=== PATIENT | female | born 1950 | race Caucasian/White ===

== ENCOUNTER 2016-11-08 05:48 | Inpatient (IN) ==
--- NOTE | 2016-11-01 11:12 | XRay Report ---
XR chest 2V Indication: Preop respiratory evaluation Comparison: Chest x-ray dated February 03, 2014 Technique: Frontal and lateral views of the chest Findings: Cardiomediastinal silhouette is stable in configuration. Chronic change of the lungs without focal consolidation, pleural effusion, or pneumothorax.Surgical anchors noted within the proximal right humerus. IMPRESSION: No acute cardiopulmonary process demonstrated. PROCEDURE INTERPRETED AT [facility] DEPARTMENT OF RADIOLOGY Final Report Signed by: Dr Mack Harris
--- NOTE | 2016-11-01 11:15 | EKG Report ---
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
[2016-11-01 11:37] LABS: Basophils # 0.1 10*3/uL (0.0-0.2); Basophils % 1.3 % (0.0-0.8); Eosinophils # 0.3 10*3/uL (0.0-0.87); Eosinophils % 3.6 % (0.00-10.9); Hematocrit 32.1 VOL% (35.7-47.0); Hemoglobin 10.2 GM/DL (12.0-16.0); Immature Granulocytes % 0.4 %; Immature Granulocytes Absolute 0.03 #; Lymphocytes # 1.9 10*3/uL (1.4-4.0); Lymphocytes % 26.7 % (21.3-54.2); Mean Corpuscular HGB Conc 31.8 GM/DL (32-36); Mean Corpuscular Hemoglobin 27 PG (27-34); Mean Corpuscular Volume 83.4 FL (87-102); Mean Platelet Volume 9.9 FL (9.6-12.0); Monocytes # 0.5 10*3/uL (0.11-0.8); Monocytes % 7.8 % (1.7-12.7); Neutrophils # 4.2 10*3/uL (1.4-7.4); Neutrophils % 60.2 % (38.7-73.9); Platelet Count 369 T/CUMM (130-400); Red Blood Count 3.85 MC/CUMM (3.8-5.5); Red Cell Distribution Width 17.3 % (9.3-17.3); White Blood Count 6.9 T/CUMM (4-12)
[2016-11-01 11:40] LABS: Apearance,Urine CLEAR (Clear); Bilirubin,Urine Negative (Negative); Blood, Urine Negative (Negative); Glucose,Urine (UA) Negative (Negative); Ketones,Urine Negative (Negative); Nitrite,Urine Negative (Negative); Protein,Urine Negative; RBC,Urine 1 /HPF (0-4); Squamous Epithelial Cell,Urine Occasional /HPF (0-10); Urine Color Yellow (Yellow); Urine Specific Gravity 1.011 (1.001-1.035); Urine Urobilinogen < 2.0 EU/DL (0.2-1.0); WBC,Urine <1 /HPF (0-6)
[2016-11-01 11:50] LABS: PT Patient Result 10.4 SECS
[2016-11-01 12:16] LABS: Alanine Aminotransferase 12 U/L (13-56); Albumin 3.9 G/DL (3.4-5.0); Alkaline Phosphatase 76 U/L (45-117); Aspartate Amino Transferase 11 U/L (0-37); Bilirubin,Total < 0.39 MG/DL (0.2-1.0); Blood Urea Nitrogen 22 MG/DL (7-18); Calcium 8.8 MG/DL (8.5-10.1); Glucose 106 MG/DL (74-106); Osmolality,Calculated 272.1 MOS/KG (273-304); Potassium 4.3 MMOL/L (3.5-5.1); Sodium 135 MMOL/L (136-145); Total Protein 7.4 G/DL (6.4-8.3)
[2016-11-08] MEDS ORDERED: VANCOMYCIN INJ 1,000 MG in SODIUM CHLORIDE 0.9% 250 ML IV ONE (06:00)
[2016-11-08] MEDS ORDERED: VANCOMYCIN 1,000 MG VIAL ONE (06:11)
[2016-11-08] MEDS ORDERED: CLINDAMYCIN INJ 50 ML IV ONE (06:11)
[2016-11-08] MEDS ORDERED: LACTATED RINGERS 1,000 ML IV SCH (06:30)
[2016-11-08] MEDS ORDERED: LORazepam 1 MG TABLET PO ONE (06:33)
[2016-11-08] MEDS ORDERED: FAMOTIDINE 20 MG TABLET PO ONE (06:33)
[2016-11-08] MEDS ORDERED: BUPIVACAINE 0.5% 50 ML VIAL ONE (06:34)
[2016-11-08] MEDS ORDERED: MORPHINE 10 MG/1 ML VIAL ONE (06:34)
[2016-11-08] MEDS ORDERED: EPINEPHrine 1 MG/ML VIAL ONE (06:34)
[2016-11-08] MEDS ORDERED: PROPOFOL 500 MG/50 ML BOTTLE IV ONE (07:00)
[2016-11-08] MEDS ORDERED: ONDANSETRON 4 MG/2 ML VIAL ONE (07:00)
[2016-11-08] MEDS ORDERED: LIDOCAINE 1% 5 ML VIAL ONE (07:00)
[2016-11-08] MEDS ORDERED: ROPIVACAINE 0.5% 30 ML VIAL ONE (07:51)
[2016-11-08] MEDS ORDERED: CLINDAMYCIN INJ 900 MG in PREMIX 1 EACH IV ONE (07:54)
[2016-11-08] MEDS ORDERED: diphenhydrAMINE CAP 25 MG CAPSULE PO PRN (08:24)
[2016-11-08] MEDS ORDERED: MAGNESIUM HYDROXIDE SUSP 30 ML UDCUP PO PRN (08:24)
[2016-11-08] MEDS ORDERED: GLUCAGON 1 MG VIAL IM PRN (08:24)
[2016-11-08] MEDS ORDERED: ZALEPLON 5 MG CAPSULE PO PRN (08:24)
[2016-11-08] MEDS ORDERED: DEXTROSE 50% 25 GM/50 ML VIAL IV PRN (08:24)
--- NOTE | 2016-11-08 08:37 | Anesthesia Post-Op ---
Anesthesia Post OP - Post Ansesthetic Evaluation Patient seen in post op: Yes Resp: within normal limits CV: within normal limits Mental: within normal limits Temp: within normal limits [id number]-Tj-Oxcbxekmp: within normal limits Nausea and Vomiting: within normal limits Pain: within normal limits
[2016-11-08] MEDS ORDERED: MIDAZOLAM 2 MG/2 ML VIAL ONE (08:38)
[2016-11-08] MEDS ORDERED: ACETAMINOPHEN 1,000 MG/100 ML VIAL IV ONE (08:39)
[2016-11-08] MEDS ORDERED: SODIUM CHLORIDE 0.9% 100 ML IV ONE (08:39)
[2016-11-08] MEDS ORDERED: fentaNYL 100 MCG/2 ML VIAL ONE (08:39)
[2016-11-08] MEDS ORDERED: NON-FORMULARY MEDICATION (Biotin [Biotin] 5,000 MCG) PO SCH (09:00)
--- NOTE | 2016-11-08 09:08 | XRay Report ---
Exam: XR knee 2V LT Date: 11/08/2016 8:26 AM Comparison: 11/08/2016 Indication: Postop knee replacement Technique:[AP and lateral left knee] Findings: Recent satisfactory left total knee replacement with postoperative findings. Impression: Recent satisfactory left total knee replacement. No fracture or dislocation. PROCEDURE INTERPRETED AT [facility] DEPARTMENT OF RADIOLOGY Final Report Signed by: Dr. Nay Nash
[2016-11-08] MEDS ORDERED: TRANEXAMIC ACID 1,000 MG/10 ML VIAL IV ONE (09:15)
[2016-11-08] MEDS: ALBUTEROL/IPRATROPIUM 3 ML NEB RESP TX SCH ×4 (09:30→19:57)
[2016-11-08] MEDS: SODIUM CHLORIDE 0.9% 1,000 ML IV SCH ×3 (09:50→20:14)
[2016-11-08] MEDS: INSULIN LISPRO 100 UNIT/ML SUBCUT SCH ×3 (11:24→20:46)
[2016-11-08 11:36] LABS: Basophils # 0.1 10*3/uL (0.0-0.2); Basophils % 0.8 % (0.0-0.8); Eosinophils # 0.2 10*3/uL (0.0-0.87); Eosinophils % 2.2 % (0.00-10.9); Hematocrit 28.4 VOL% (35.7-47.0); Hemoglobin 8.8 GM/DL (12.0-16.0); Immature Granulocytes % 0.8 %; Immature Granulocytes Absolute 0.07 #; Lymphocytes # 1.6 10*3/uL (1.4-4.0); Lymphocytes % 18.3 % (21.3-54.2); Mean Corpuscular Hemoglobin 26 PG (27-34); Mean Corpuscular Volume 84.8 FL (87-102); Mean Platelet Volume 9.4 FL (9.6-12.0); Monocytes # 0.5 10*3/uL (0.11-0.8); Monocytes % 6.1 % (1.7-12.7); Neutrophils # 6.3 10*3/uL (1.4-7.4); Neutrophils % 71.8 % (38.7-73.9); Platelet Count 340 T/CUMM (130-400); Red Blood Count 3.35 MC/CUMM (3.8-5.5); Red Cell Distribution Width 17.2 % (9.3-17.3); White Blood Count 8.8 T/CUMM (4-12)
--- NOTE | 2016-11-08 12:05 | Pulmonology Progress Note ---
Pulmonary - PN: Subj Interval history: Lane Ramirez, ANP-BC, GNP-BC, acting as scribe for Dr. Jose J Durand Ms. Thibodeaux is a 66 year old white female who underwent left total knee arthroplasty earlier today by Dr. Dee. We are consulted to follow along in medical management consultation. Her pertinent past history includes: COPD, colon polyps, depression, esophagitis. GERD, and hiatal hernia. On review of [facility] records, there may be a past history of tobacco use, but the patient's records here say she was never a smoker. She was seen today along with her . She is post-op and doing well. She denies any pain, complaints or concerns at this time. Medications have been reviewed. Her home medications have been restarted. Labs have been reviewed. Her pre-op labs were done 11/01/16, so we will check a CBC and BMP/Mg+ today. Exam (Progress Note) - Constitutional Vitals: Period Temp Pulse Resp BP Sys/Valdovinos Pulse Ox Last 24 Hr 97.2 F-98.1 F 65-68 16-20 107-143/59-88 94-100 Exam: Chest is clear Heart no gallop Abd is nontender and nondistended; BS postivie x 4 Ext post-surgical as per Dr. Dee; nothing to suggest acute DVT Psych somnolent, but arousable and able to answer questions appropriately Neuro long tract motor function is intact Plan: Check CBC and BMP/Mg+ today. Labs already ordered for tomorrow. Continue present treatment. See orders. Results - Labs CBC & BMP: 11/08/16 11:25 11/08/16 11:25
[2016-11-08 12:07] LABS: Alanine Aminotransferase 12 U/L (13-56); Alkaline Phosphatase 71 U/L (45-117); Aspartate Amino Transferase 12 U/L (0-37); Bilirubin,Total < 0.39 MG/DL (0.2-1.0); Blood Urea Nitrogen 20 MG/DL (7-18); Calcium 8.4 MG/DL (8.5-10.1); Glucose 105 MG/DL (74-106); Osmolality,Calculated 279.5 MOS/KG (273-304); Potassium 4.1 MMOL/L (3.5-5.1); Sodium 139 MMOL/L (136-145); Total Protein 5.8 G/DL (6.4-8.3)
[2016-11-08] MEDS: KETOROLAC 30 MG/1 ML VIAL IV SCH ×3 (12:16→20:03)
[2016-11-08] MEDS: FLUTICASONE/SALMETEROL 250-50 DISKUS 14 DOSE INH SCH ×2 (12:16→21:48)
[2016-11-08] MEDS: CITALOPRAM 20 MG TABLET PO SCH (12:16)
[2016-11-08] MEDS: DOCUSATE SODIUM 100 MG CAPSULE PO SCH ×2 (12:16→20:02)
[2016-11-08] MEDS: hydroCHLOROthiazide 25 MG TABLET PO SCH (12:17)
[2016-11-08] MEDS: POTASSIUM CHLORIDE 20 MEQ PACK PO SCH (12:17)
[2016-11-08] MEDS: PANTOPRAZOLE 40 MG TABLET PO SCH ×2 (12:17→21:12)
[2016-11-08] MEDS: LEVOTHYROXINE 50 MCG TABLET PO SCH (12:17)
[2016-11-08] MEDS: ACETAMINOPHEN 500 MG TABLET PO SCH ×2 (13:13→20:02)
[2016-11-08] MEDS: ONDANSETRON 4 MG/2 ML VIAL IV PRN (13:13)
[2016-11-08] MEDS: CLINDAMYCIN INJ 900 MG in PREMIX 1 EACH IV SCH ×2 (13:13→20:13)
--- NOTE | 2016-11-08 17:26 | Orthopedic Progress Note ---
Assessment and Plan (1) Status post total left knee replacement Status: Acute Assessment and plan: Routine postop antibiotics DVT prophylaxis Out of bed with therapy twice daily beginning tomorrow Discharge planning Current Visit: Yes Orthopedics - Subjective Interval history: Patient's pain is controlled, she has no complaints postoperatively. On exam her dressings clean dry, she is neurovascular intact the left foot. Exam - Constitutional Vitals: Period Temp Pulse Resp BP Sys/Valdovinos Pulse Ox Last 24 Hr 97.2 F-98.1 F 56-68 16-20 91-143/53-88 92-100 Results - Labs CBC & BMP: 11/08/16 11:25 11/08/16 11:25
[2016-11-09] MEDS: ACETAMINOPHEN 500 MG TABLET PO SCH ×2 (00:59→06:59)
[2016-11-09] MEDS: SODIUM CHLORIDE 0.9% 1,000 ML IV SCH (04:20)
[2016-11-09] MEDS: ENOXAPARIN 40 MG/0.4 ML SYRINGE SUBCUT SCH (04:57)
[2016-11-09] MEDS ORDERED: KETOROLAC 30 MG/1 ML VIAL IV ONE (05:00)
[2016-11-09] MEDS: KETOROLAC 30 MG/1 ML VIAL IV SCH (05:05)
[2016-11-09 05:14] LABS: Basophils % 0.5 % (0.0-0.8); Eosinophils # 0.2 10*3/uL (0.0-0.87); Eosinophils % 2.8 % (0.00-10.9); Hematocrit 26.1 VOL% (35.7-47.0); Hemoglobin 7.9 GM/DL (12.0-16.0); Immature Granulocytes % 0.7 %; Immature Granulocytes Absolute 0.05 #; Lymphocytes # 1.8 10*3/uL (1.4-4.0); Lymphocytes % 23.9 % (21.3-54.2); Mean Corpuscular HGB Conc 30.3 GM/DL (32-36); Mean Corpuscular Hemoglobin 26 PG (27-34); Mean Corpuscular Volume 85.6 FL (87-102); Mean Platelet Volume 10.2 FL (9.6-12.0); Monocytes # 0.8 10*3/uL (0.11-0.8); Monocytes % 11.2 % (1.7-12.7); Neutrophils # 4.5 10*3/uL (1.4-7.4); Neutrophils % 60.9 % (38.7-73.9); Platelet Count 302 T/CUMM (130-400); Red Blood Count 3.05 MC/CUMM (3.8-5.5); Red Cell Distribution Width 17.3 % (9.3-17.3); White Blood Count 7.4 T/CUMM (4-12)
[2016-11-09 05:38] LABS: Calcium 7.6 MG/DL (8.5-10.1); Osmolality,Calculated 283.4 MOS/KG (273-304); Potassium 4.7 MMOL/L (3.5-5.1)
[2016-11-09] MEDS: ALBUTEROL/IPRATROPIUM 3 ML NEB RESP TX SCH ×4 (07:15→19:05)
--- NOTE | 2016-11-09 07:44 | Orthopedic Progress Note ---
Assessment and Plan (1) Status post total left knee replacement Status: Acute Assessment and plan: DVT prophylaxis Out of bed with therapy twice daily Discharge planning Current Visit: Yes Orthopedics - Subjective Interval history: Patient has no complaints this morning, her pain is controlled. On exam her dressings clean and dry, she is neurovascularly intact in the left foot. Exam - Constitutional Vitals: Period Temp Pulse Resp BP Sys/Valdovinos Pulse Ox Last 24 Hr 97.2 F-98.5 F 56-87 16-20 91-125/48-88 92-100 Results - Labs CBC & BMP: 11/09/16 04:41 11/09/16 04:41
[2016-11-09] MEDS: INSULIN LISPRO 100 UNIT/ML SUBCUT SCH ×4 (07:58→21:31)
[2016-11-09] MEDS: ONDANSETRON 4 MG/2 ML VIAL IV PRN (08:36)
[2016-11-09] MEDS: CITALOPRAM 20 MG TABLET PO SCH (08:47)
[2016-11-09] MEDS: FLUTICASONE/SALMETEROL 250-50 DISKUS 14 DOSE INH SCH ×2 (08:47→20:09)
[2016-11-09] MEDS: DOCUSATE SODIUM 100 MG CAPSULE PO SCH ×2 (08:48→20:08)
[2016-11-09] MEDS: POTASSIUM CHLORIDE 20 MEQ PACK PO SCH (08:48)
[2016-11-09] MEDS: PANTOPRAZOLE 40 MG TABLET PO SCH ×2 (08:48→20:09)
[2016-11-09] MEDS: hydroCHLOROthiazide 25 MG TABLET PO SCH (08:48)
[2016-11-09] MEDS: metFORMIN 500 MG TABLET PO SCH ×2 (08:48→20:08)
[2016-11-09] MEDS: LEVOTHYROXINE 50 MCG TABLET PO SCH (08:48)
[2016-11-09] MEDS ORDERED: ALBUTEROL/IPRATROPIUM 3 ML NEB RESP TX PRN (09:43)
--- NOTE | 2016-11-09 10:22 | Pulmonology Progress Note ---
Pulmonary - PN: Subj Interval history: Ms. Thibodeaux is a 66 year old white female who underwent left total knee arthroplasty earlier today by Dr. Dee. We are consulted to follow along in medical management consultation. Her pertinent past history includes: COPD, colon polyps, depression, esophagitis. GERD, and hiatal hernia. On review of [facility] records, there may be a past history of tobacco use, but the patient's records here say she was never a smoker. 11/08/2016. She was seen today along with her . She is post-op and doing well. She denies any pain, complaints or concerns at this time. Medications have been reviewed. Her home medications have been restarted. Labs have been reviewed. Her pre-op labs were done 11/01/16, so we will check a CBC and BMP/Mg+ today. 11/09/2016. This patient has a lot of wheezing today. This is mainly on the left side. She is on inhalation therapy and we have changed to order slightly. She says that she had a staph aureus pneumonia in 2012 and since then she has had chronic bronchitis and chronic sputum production. Turns out that she has some significant solid dysphasia strongly suggestive of esophageal stricture. She has severe gastroesophageal reflux and up into her throat and I suspect that this is a cause of the tracheal and large airway wheeze that I hear. I discussed this in detail with the patient and her . Lane aRmirez nurse practitioner was present. We discussed an antireflux regimen, keeping a food diary timing of meals etc. We will also make her an outpatient appointment to see Dr. Renan Hernandez for possible E scope with dilatation. She seen Dr. Hernandez in the past. Suspected reflux and aspiration is what propagates this patient's pulmonary problems. When she is discharged she will be referred back to M[facility] Ward nurse practitioner with the Adderall treatments for reflux and nocturnal microaspiration. Creatinine has increased to 1.4 which BUN at 24 electrolytes are normal. H&H is dropped slightly to 7.9/26.1. Red blood cell indices are low. Platelets of 302,000 white count is 7400 with a normal differential. I will check iron studies. Exam (Progress Note) - Constitutional Vitals: Period Temp Pulse Resp BP Sys/Valdovinos Pulse Ox Last 24 Hr 97.2 F-98.1 F 65-68 16-20 107-143/59-88 94-100 Exam: Psychiatric. Oriented 3. Awake and alert. is present. Face. Symmetrical. Lips and tongue are normal. Neck. Symmetrical. No meningismus. Lymphatics. No submandibular cervical supraclavicular or epitrochlear adenopathy. Chest is clear Heart no gallop Abd is nontender and nondistended; BS postivie Neuro. Long tract motor function is intact. Cranial nerves are intact Extremities. Nothing to suggest deep venous thrombophlebitis The remainder the physical exam is noncontributory. Plan. 1. 11/09/2016. Antireflux regimen. Discussed with the patient and her . Outpatient appointment Dr. Renan Mooney scope and dilatation. 2. 11/09/2016. Iron. Total iron-binding capacity.. 3. Inhalation therapy. Incentive spirometry. See orders. Exam (Progress Note) - Constitutional Vitals: Period Temp Pulse Resp BP Sys/Valdovinos Pulse Ox Last 24 Hr 97.3 F-98.5 F 56-87 16-20 91-125/48-71 91-100 Results - Labs CBC & BMP: 11/09/16 04:41 11/09/16 04:41
[2016-11-09 10:45] LABS: % Iron Saturation 7.2 % (18-50)
[2016-11-09] MEDS: ONDANSETRON ODT 4 MG TABLET PO PRN ×3 (15:22→20:23)
[2016-11-09] MEDS: CELECOXIB 200 MG CAPSULE PO SCH (15:24)
[2016-11-09] MEDS: ACETAMINOPHEN 325 MG TABLET PO PRN (18:53)
[2016-11-10] MEDS: ONDANSETRON ODT 4 MG TABLET PO PRN ×3 (00:57→14:37)
[2016-11-10] MEDS: ENOXAPARIN 40 MG/0.4 ML SYRINGE SUBCUT SCH (03:24)
[2016-11-10] MEDS: ACETAMINOPHEN 325 MG TABLET PO PRN (04:26)
--- NOTE | 2016-11-10 07:19 | Orthopedic Progress Note ---
Assessment and Plan (1) Status post total left knee replacement Status: Acute Assessment and plan: DVT prophylaxis Out of bed with therapy twice daily Discharge today or tomorrow with home health and PT Current Visit: Yes Orthopedics - Subjective Interval history: Patient has had some increase in pain yesterday, she was able to ambulate in the hallway with therapy. On exam her dressings clean and dry, she is neurovascularly intact. Exam - Constitutional Vitals: Period Temp Pulse Resp BP Sys/Valdovinos Pulse Ox Last 24 Hr 96.9 F-98.3 F 68-98 16-20 92-125/52-66 91-100 Results - Labs CBC & BMP: 11/09/16 04:41 11/09/16 04:41 Specialty Discharge - Follow Up or Referrals Follow up with: Jesus Hernandez MD [Physician] - 11/14/16 2:15 pm
--- NOTE | 2016-11-10 07:26 | Discharge Summary ---
Hospital Course - Hospital Course Hospital Course: 66-year-old female admitted hospital following left total knee arthroplasty. She tolerated procedure well was transferred for stable condition postoperatively. She received routine antibiotics and thromboprophylaxis. She was seen by physical therapy. Once her pain was controlled she was ambulating safely, she was subsequently discharged. Time of discharge her wounds clean dry and she is neurovascularly intact. Diagnosis - Discharge Diagnosis (1) Status post total left knee replacement Status: Acute Specialty Discharge - Follow Up or Referrals Follow up with: Jesus Hernandez MD [Physician] - 11/14/16 2:15 pm Ernesto Dee MD [Physician] - 11/28/16 1:00 pm (2-3 weeks) Discharge Plan - Discharge Data Disposition: Home Health Service Condition at Discharge: Stable Discharge Diet: advance to your usual diet Activity: ambulate only with your walker Hygiene: may shower Weight Bearing at Discharge: weight bear as tolerated Driving: not until seen by doctor Contact your physician if you experience:: fever over 101, Difficulty voiding, Redness or swelling, Nausea/Vomiting, Shortness of breath, Bleeding, pain uncontrolled by pain medications Wound / Dressing Care Instructions: Daily dressing change left knee. Okay to shower, no tub soaks. Hiram out 11/21/2016 - Discharge Medications New Docusate Sodium Cap [Colace Cap] 100 mg PO BID capsule HYDROcodone/ACETAMIN 7.5-325 [[place] 7.5-325] 1 - 2 tablet PO Q4H PRN #60 tablet PRN Reason: Pain Moderate (4-7) Aspirin EC Tab 325 mg PO DAILY #30 tablet Continue Omeprazole [Prilosec] 20 mg PO BID hydroCHLOROthiazide [Hydrochlorothiazide] 50 mg PO DAILY Ipratropium/Albuterol Inhaler [Combivent Respimat Inhaler] 1 puff INH QID Citalopram [CeleXA] 10 mg PO DAILY Biotin 5,000 mcg PO DAILY Fluticasone/Salmeterol 250-50 [Advair 250-50] 1 puff INH BID Metformin HCl [Fortamet] 1,000 mg PO BID Levothyroxine Tab [Synthroid Tab] 50 mcg PO DAILY Potassium Chloride [Klor-Con] 20 meq PO DAILY Docusate Sodium 100 mg PO DAILY Meloxicam 7.5 mg PO DAILY Discontinued Aspirin [Ecotrin] 81 mg PO DAILY - Follow Up or Referral Follow Up: Jesus Hernandez MD [Physician] - 11/14/16 2:15 pm Ernesto Dee MD [Physician] - 11/28/16 1:00 pm (2-3 weeks) - Forms/Instructions Instructions: Total Knee Replacement (DC) Exam - Constitutional Vitals: Period Temp Pulse Resp BP Sys/Valdovinos Pulse Ox Last 24 Hr 96.9 F-98.3 F 68-98 16-20 92-125/52-66 91-100 Discharge Results Procedures and tests throughout hospitalization: Pending Orders 11/10/16 04:00 Comp Blood Count Auto Diff IN AM 11/11/16 04:00 Comp Blood Count Auto Diff IN AM Labs on day of discharge: Labs from last 24 hours 11/09/16 11/09/16 11/09/16 20:13 15:55 11:00 POC Glucose 194 H 134 H 144 H Iron TIBC % Saturation 11/09/16 11/09/16 07:06 04:38 POC Glucose 140 H Iron 20 L TIBC 279 % Saturation 7.2 L DS: Provider Date of admission: 11/08/16 05:48 Primary care physician: Nay Tracey NP Attending physician on admission: Ernesto Dee MD Consults: 11/08/16 08:24 Consult to Case Mgmt/Social Srvs [CONS] Routine Reason for Case Mgmt/Social Srvs: Rehab Home Health Equipment Consult Comment: Bedside Commode, del to rm 321 before D/C tomorrow; Pt 5ft 7in 201lbs Consult to Occupational Therapy [CONS] Routine Reason for Occupational Therapy: Evaluate and Treat Consult Comment: ADL's Consult to Physical Therapy [CONS] Routine Reason for Physical Therapy: Evaluate and Treat Gait Training Start Therapy: Today 11/08/16 08:26 Consult to Physician [CONS] Routine Comment: Consulting Provider: Jose J Antoine Consulting Provider Notified: Yes When should Consulting Provider be notified: Now Person Notified: dr. antoine Date Notified: 11/08/16 Time Notified: 10:25 11/09/16 13:34 Consult to Physical Therapy [CONS] Routine Reason for Physical Therapy: Other Consult Comment: Take Standard Walker to Pt before she is D/C'd tomorrow rm 321, to home 11/09/16 13:36 Consult to Outpatient Therapy [CONS] Routine Reason for Outpatient Therapy: Physical Therapy Consult Comment: Pt wants to do OP Rehab @ [facility] after completing HH w/ [facility] Discharging clinician: Ernesto Dee MD
[2016-11-10 07:35] LABS: Basophils # 0.1 10*3/uL (0.0-0.2); Basophils % 0.5 % (0.0-0.8); Eosinophils # 0.4 10*3/uL (0.0-0.87); Eosinophils % 3.3 % (0.00-10.9); Hemoglobin 7.7 GM/DL (12.0-16.0); Immature Granulocytes % 0.6 %; Immature Granulocytes Absolute 0.07 #; Lymphocytes # 1.6 10*3/uL (1.4-4.0); Lymphocytes % 13.4 % (21.3-54.2); Mean Corpuscular HGB Conc 29.6 GM/DL (32-36); Mean Corpuscular Hemoglobin 25 PG (27-34); Mean Corpuscular Volume 85.8 FL (87-102); Mean Platelet Volume 10.7 FL (9.6-12.0); Monocytes # 0.8 10*3/uL (0.11-0.8); Monocytes % 6.5 % (1.7-12.7); Neutrophils # 8.8 10*3/uL (1.4-7.4); Neutrophils % 75.7 % (38.7-73.9); Platelet Count 336 T/CUMM (130-400); Red Blood Count 3.03 MC/CUMM (3.8-5.5); Red Cell Distribution Width 17.7 % (9.3-17.3); White Blood Count 11.6 T/CUMM (4-12)
[2016-11-10] MEDS: ALBUTEROL/IPRATROPIUM 3 ML NEB RESP TX SCH ×2 (08:36→11:37)
[2016-11-10] MEDS: INSULIN LISPRO 100 UNIT/ML SUBCUT SCH ×2 (08:54→11:06)
[2016-11-10] MEDS: FLUTICASONE/SALMETEROL 250-50 DISKUS 14 DOSE INH SCH (08:58)
[2016-11-10] MEDS: CELECOXIB 200 MG CAPSULE PO SCH (08:59)
[2016-11-10] MEDS: PANTOPRAZOLE 40 MG TABLET PO SCH (08:59)
[2016-11-10] MEDS: DOCUSATE SODIUM 100 MG CAPSULE PO SCH (08:59)
[2016-11-10] MEDS: POTASSIUM CHLORIDE 20 MEQ PACK PO SCH (08:59)
[2016-11-10] MEDS: metFORMIN 500 MG TABLET PO SCH (08:59)
[2016-11-10] MEDS: LEVOTHYROXINE 50 MCG TABLET PO SCH (09:00)
[2016-11-10] MEDS: CITALOPRAM 20 MG TABLET PO SCH (09:00)
[2016-11-10] MEDS: hydroCHLOROthiazide 25 MG TABLET PO SCH (09:00)
--- NOTE | 2016-11-10 09:58 | Physician Query Form ---
CLICK EDIT DOCUMENT TO SELECT QUERY ANSWER --> OK --> SIGN Evie Rosa RN Clinical Vegetable I Farmworker W) [phone] (f) [phone] [email or web address] PROVIDERS: Make your selection(s) from the choices in EACH section by typing an "x" and enter comments in the comment section. Please use your independent medical judgment in providing your response. This request does not imply that any particular answer is desired or expected. CLINICAL INDICATORS: (Providers should not edit this section) Based on documentation of serum creatinine from 1.10 to 1.40. GFR from 62 to 46. Treated with LR infusion. Monitored with serial lab checks. Clarify which of the following most accurately represents the patient's renal status: ( ) Acute kidney injury (non-traumatic) ( ) Acute renal failure ( ) Acute renal failure with underlying Chronic Kidney Disease (CKD) - please provide stage below ( ) Acute renal failure with pathological renal lesion ( ) Acute renal failure with necrosis ( ) tubular ( ) medullary ( ) cortical ( ) CKD - please provide stage below ( ) End Stage Renal Disease ( ) Acute interstitial nephritis ( ) Hepatorenal syndrome ( ) Other, please specify: ( ) Clinically unable to determine Chronic Kidney Disease Stages Source: National Kidney Disease Foundation ( ) Stage I (eGFR > or = 90) ( ) Stage II (eGFR 60 - 89) ( ) Stage III (eGFR 30 - 59) ( ) Stage IV (eGFR 15 - 29) ( ) Stage V (eGFR < 15 or dialysis) COMMENTS: PLEASE FORWARD ANY QUESTIONS REGARDING MEDICAL MANAGEMENT OF PATIENT TO MEDICAL MD PLEASE ALSO DOCUMENT RESPONSE IN PROGRESS NOTES AND/OR DISCHARGE SUMMARY Use of terms such as suspected, likely, or probable (associated with a specific diagnosis that is being evaluated, monitored, or treated as if it exists) are acceptable and can be restated in the discharge summary if not ruled out. MTDD
[2016-11-10] MEDS ORDERED: FERROUS SULFATE 325 MG TABLET PO SCH (10:30)
--- NOTE | 2016-11-10 11:13 | Pulmonology Progress Note ---
Pulmonary - PN: Subj Interval history: Lane Ramirez, ANP-BC, GNP-BC, acting as scribe for Dr. Jose J Durand Ms. Thibodeaux is a 66 year old white female who underwent left total knee arthroplasty earlier today by Dr. Dee. We are consulted to follow along in medical management consultation. Her pertinent past history includes: COPD, colon polyps, depression, esophagitis. GERD, and hiatal hernia. On review of [facility]'s records, there may be a past history of tobacco use, but the patient's records here say she was never a smoker. She was seen today along with her . She is post-op and doing well. She denies any pain, complaints or concerns at this time. 11/09/2016. This patient has a lot of wheezing today. This is mainly on the left side. She is on inhalation therapy and we have changed to order slightly. She says that she had a staph aureus pneumonia in 2012 and since then she has had chronic bronchitis and chronic sputum production. Turns out that she has some significant solid dysphasia strongly suggestive of esophageal stricture. She has severe gastroesophageal reflux and up into her throat and I suspect that this is a cause of the tracheal and large airway wheeze that I hear. I discussed this in detail with the patient and her . Lane Ramirez nurse practitioner was present. We discussed an antireflux regimen, keeping a food diary timing of meals etc. We will also make her an outpatient appointment to see Dr. Renan Hernandez for possible E scope with dilatation. She seen Dr. Hernandez in the past. Suspected reflux and aspiration is what propagates this patient's pulmonary problems. When she is discharged she will be referred back to Mavis Sylvester nurse practitioner with the attention to treatments for reflux and nocturnal microaspiration. Creatinine has increased to 1.4 which BUN at 24 electrolytes are normal. H&H is dropped slightly to 7.9/26.1. Red blood cell indices are low. Platelets of 302,000 white count is 7400 with a normal differential. I will check iron studies. 11/10/2016. The patient was seen today along with her . She just completed walking stairs with physical therapy. She appears to be doing well from an orthopedic standpoint. Her iron studies were obtained and are consistent with iron deficiency anemia. She states that this would be a new diagnosis for her. She has never taken iron, but we will start ferrous sulfate 325 mg p.o. twice daily. She has an appointment with Dr. Hernandez on 11/14/2016. She will keep that appointment. She states she believes this for her upper and lower endoscopies. Medications have been reviewed. Ferrous sulfate was started today as above. Labs been reviewed. White count is 11,600 with 75.7% segs; H&H 7.7/26.0 with decreased indices and increased red blood cell distribution with; platelet count 336,000; iron studies reveal an iron of 20, iron saturation 7.2%, and total iron-binding capacity 279 Exam (Progress Note) - Constitutional Vitals: Period Temp Pulse Resp BP Sys/Valdovinos Pulse Ox Last 24 Hr 96.9 F-98.3 F 68-78 16-20 92-121/52-59 91-100 Exam: Chest is clear Heart no gallop Abd is nontender and nondistended; BS postivie x 4 Ext post-surgical as per Dr. Dee; nothing to suggest acute DVT Psych oriented 3 Neuro long tract motor function is intact Plan: Your plans for discharge are noted. We will sign off. Please reconsult as needed. She will continue her routine care with Nay Tracey, nurse practitioner. She is already scheduled to see Dr. Hernandez on 11/14/2016. Results - Labs CBC & BMP: 11/10/16 04:33 11/09/16 04:41 Specialty Discharge - Follow Up or Referrals Follow up with: Jesus Hernandez MD [Physician] - 11/14/16 2:15 pm Ernesto Dee MD [Physician] - 11/28/16 1:00 pm (2-3 weeks)
[2016-11-10 11:21] VITALS: BP 92/62
--- NOTE | 2016-11-13 16:29 | Physician Query Form ---
CLICK EDIT DOCUMENT TO SELECT QUERY ANSWER --> OK --> SIGN Evie Rosa RN Clinical Clutch Inspector W) [phone] (f) [phone] [email or web address] PROVIDERS: Make your selection(s) from the choices in EACH section by typing an "x" and enter comments in the comment section. Please use your independent medical judgment in providing your response. This request does not imply that any particular answer is desired or expected. CLINICAL INDICATORS: (Providers should not edit this section) Based on documentation of serum creatinine from 1.10 to 1.40. GFR from 62 to 46. Treated with LR infusion. Monitored with serial lab checks. Clarify which of the following most accurately represents the patient's renal status: ( ) Acute kidney injury (non-traumatic) ( ) Acute renal failure ( ) Acute renal failure with underlying Chronic Kidney Disease (CKD) - please provide stage below ( ) Acute renal failure with pathological renal lesion ( ) Acute renal failure with necrosis ( ) tubular ( ) medullary ( ) cortical ( ) CKD - please provide stage below ( ) End Stage Renal Disease ( ) Acute interstitial nephritis ( ) Hepatorenal syndrome ( X) Other, please specify: Acute kidney injury ( ) Clinically unable to determine Chronic Kidney Disease Stages Source: National Kidney Disease Foundation ( ) Stage I (eGFR > or = 90) ( ) Stage II (eGFR 60 - 89) ( ) Stage III (eGFR 30 - 59) ( ) Stage IV (eGFR 15 - 29) ( ) Stage V (eGFR < 15 or dialysis) COMMENTS: PLEASE ALSO DOCUMENT RESPONSE IN PROGRESS NOTES AND/OR DISCHARGE SUMMARY Use of terms such as suspected, likely, or probable (associated with a specific diagnosis that is being evaluated, monitored, or treated as if it exists) are acceptable and can be restated in the discharge summary if not ruled out. MTDD
== END 2016-11-10 16:00 | disposition home health service (06) | DRG 470 ==
LOC: N.SDSINP 05:48 → N.3E 08:13
PROVIDERS: ADMIT Orthopaedic Surgery; ATTEND Orthopaedic Surgery